=== PATIENT | male | born 1965 | race Caucasian/White ===

== ENCOUNTER → 2016-05-23 | Outpatient (CLI) | payer MEDICAID ==
[~2016-05-23] MED LIST: SAPHRIS
--- NOTE | 2016-05-23 10:44 | DI ---
INDICATION: ITS.REASON: R07.9 CHEST PAIN, UNSPECIFIED PROCEDURE: CHEST 2-VIEWS UPRIGHT (PA \T\ LAT) Encounter: Initial COMPARISON: None FINDINGS: The lungs are hypoinflated with suggestion of some mild interstitial prominence. No focal consolidative pneumonia. No pleural effusion or pneumothorax. Heart size and mediastinal contours are within normal limits. Impression: Hypoinflation and mild interstitial prominence could relate to atelectasis or atypical/viral pneumonia .
== END ==
LOC: IMA 10:05
PROVIDERS: ATTEND Internal Medicine
DX: R91.8 Other nonspecific abnormal finding of lung field (principal); R07.9 Chest pain, unspecified